=== PATIENT | female | born 1965 | race Caucasian/White ===

== ENCOUNTER 2018-02-23 11:36 | Emergency (ER) | payer BC ==
[2018-02-23 11:42] VITALS: BP 136/96
--- NOTE | 2018-02-23 11:47 | ER Document Report ---
HPI - HPI Patient complains to provider of: Left great toe MTP joint pain Onset: Yesterday Onset/Duration: Gradual Pain Level: 4 Context: 52-year-old female walked for 4-5 hours [place] is now complaining of left great MTP joint pain. No history of gout. No fever. No specific injury. Associated Symptoms: None Exacerbated by: Movement, Walking Relieved by: Denies Similar symptoms previously: No Recently seen / treated by doctor: No - ROS ROS below otherwise negative: Yes Systems Reviewed and Negative: Yes All other systems reviewed and negative Past Medical History - General Information source: Patient - Social History Smoking Status: Unknown if Ever Smoked Frequency of alcohol use: None Drug Abuse: None Lives with: Spouse/Significant other Family History: Reviewed & Not Pertinent - Medical History Medical History: Negative Surgical Hx: Negative Vertical Provider Document - CONSTITUTIONAL Agree With Documented VS: Yes Exam Limitations: No Limitations - INFECTION CONTROL TRAVEL OUTSIDE OF THE [place] IN LAST 30 DAYS: No - MUSCULOSKELETAL/EXTREMETIES Musculoskeletal/Extremeties: MAEW, FROM, Tender - At the left first MTP joint, No Edema Notes: 2+ DP the joint is not warm or red - NEURO Level of Consciousness: Alert Motor/Sensory: No Motor Deficit, No Sensory Deficit - DERM Integumentary: No Rash Course - Re-evaluation Re-evalutation: 02/23/18 13:04 X-rays negative per radiologist except for little arthritis. I trent[place] taped the great and the second toe together in a postop shoe so that she does not have to bend that joint. - Vital Signs Vital signs: Temp Pulse Resp BP Pulse Ox 97.8 F 98 20 136/96 H 100 02/23/18 11:40 02/23/18 11:40 02/23/18 11:40 02/23/18 11:40 02/23/18 11:40 Discharge - Discharge Clinical Impression: Left foot joint inflammation, Sprained left great toe Condition: Good Disposition: HOME, SELF-CARE Instructions: Acetaminophen, Ibuprofen (General) ([facility]), Post-Op Shoe ([facility]), Sprained Toe ([facility]) Additional Instructions: Postop shoe so that she do not continue to inflame the left great toe joints Limit your walking and to your toe feels better Tylenol up to 4000 mg per day for pain Motrin for inflammation Return to the emergency room any concerns while you are vacationing here Prescriptions: Ibuprofen [Motrin 600 mg Tablet] 600 mg PO Q8HP PRN #30 tablet PRN Reason:
[2018-02-23] MEDS ORDERED: IBUPROFEN 400 MG TABLET PO ONE (12:16)
[2018-02-23] MEDS ORDERED: ACETAMINOPHEN 325 MG TABLET PO ONE (12:16)
--- NOTE | 2018-02-23 12:56 | RADIOLOGY REPORT (SQ) ---
EXAM DESCRIPTION: TOE LEFT COMPLETED DATE/TIME: 02/23/2018 12:12 pm REASON FOR STUDY: injury COMPARISON: None. NUMBER OF VIEWS: Three views. TECHNIQUE: AP, lateral, and oblique images acquired of the left great toe. LIMITATIONS: None. FINDINGS: No acute fracture or bony abnormality seen. Minimal degenerative change 1st metatarsal-ph alangeal joint. IMPRESSION: No fracture. TECHNICAL DOCUMENTATION: JOB ID: [id number] [email or web address]- All Rights Reserved Reading location - IP/workstation name: [email or web address]
== END 2018-02-23 13:06 | disposition home or self-care (01) ==
LOC: ER 11:36
DX: S93.502A Unspecified sprain of left great toe, initial encounter (principal); X58.XXXA Exposure to other specified factors, initial encounter; M19.072 Primary osteoarthritis, left ankle and foot; M25.572 Pain in left ankle and joints of left foot
CPT/HCPCS: 99283; 73660; J3490